=== PATIENT | female | born 1990 | race Caucasian/White ===

== ENCOUNTER 2018-04-15 18:11 | Emergency (ER) | payer MEDICAID ==
[2018-04-15] MEDS ORDERED: Ondansetron 4 MG/2 ML SDV IVPUSH ONE (18:56)
[2018-04-15] MEDS ORDERED: Sodium Chloride 0.9% 1,000 ML IV ONE (18:56)
[2018-04-15] MEDS ORDERED: Sodium Chloride 0.9% 10 ML Syringe FLUSH PRN (18:56)
[2018-04-15] MEDS ORDERED: diphenhydrAMINE 50 MG/ML SDV IVPUSH ONE (18:56)
[2018-04-15] MEDS ORDERED: Ketorolac 30 MG/ML SDV IVPUSH ONE (18:56)
--- NOTE | 2018-04-15 20:33 | EDM.PDOC ---
ED HPI GENERAL MEDICAL PROBLEM - General Chief Complaint: Headache Stated Complaint: HEADACHE CHILLS Time Seen by Provider: 04/15/18 18:40 Source of Information: Reports: Patient History Limitations: Reports: No Limitations - History of Present Illness INITIAL COMMENTS - FREE TEXT/NARRATIVE: This lady comes in complaining of a migraine for a few hours. This headache is similar to ones she has had in the past. She was driving and felt very very tired associated with this. Her headache is about a 6-7 out of 10. She takes medications for anxiety including one of the synthetic Cannabinoids and I believe and SSRI. She was getting these in [place] but is no longer on the medication since moving back to the [facility]. She does have a doctor in [place] she can follow-up with. - Related Data Allergies Allergy/AdvReac Type Severity Reaction Status Date / Time No Known Allergies Allergy Verified 04/15/18 18:32 Home Meds: Home Meds Nabilone [Cesamet] 04/15/18 [History] [id number] [Luvox] 04/15/18 [History] Past Medical History Psychiatric History: Reports: ADHD, Depression - Past Surgical History HEENT Surgical History: Reports: Eye Surgery Other Cardiovascular Surgeries/Procedures: wpw Social & Family History - Tobacco Use Smoking Status *Q: Never Smoker ED ROS GENERAL - Review of Systems Review Of Systems: ROS reveals no pertinent complaints other than HPI. - Physical Exam Exam: See Below Exam Limited By: No Limitations General Appearance: Alert, WD/WN, No Apparent Distress Eye Exam: Bilateral Eye: EOMI, Normal Fundi, Normal Inspection, PERRL Ears: Normal External Exam Throat/Mouth: Normal Oropharynx Head Exam: Atraumatic Neck: Normal Inspection Respiratory/Chest: No Respiratory Distress Cardiovascular: Regular Rate, Rhythm Neuro Exam (Abbreviated): Alert, Oriented, CN II-XII Intact, Normal Cognition, No Motor/Sensory Deficits Psychiatric: Normal Affect Course - Vital Signs Last Recorded V/S: Last Vital Signs Temp 35.1 C L 04/15/18 18:39 Pulse 60 04/15/18 18:39 Resp 16 04/15/18 18:39 BP 112/77 04/15/18 18:39 Pulse Ox 97 04/15/18 18:39 - Orders/Labs/Meds Orders: Active Orders 24 hr Category Date Time Status Sodium Chloride 0.9% [Saline Flush] Med 04/15/18 18:56 Active 10 ml FLUSH ASDIRECTED PRN Saline Lock Insert [OM.PC] Urgent Oth 04/15/18 18:56 Ordered Medication Orders Sodium Chloride (Saline Flush) 10 ml FLUSH ASDIRECTED PRN PRN Reason: Keep Vein Open Last Admin: 04/15/18 19:07 Dose: 10 ml Meds: Medications Generic Name Dose Route Start Last Admin Trade Name Freq PRN Reason Stop Dose Admin Sodium Chloride 10 ml 04/15/18 18:56 04/15/18 19:07 Saline Flush FLUSH 10 ml ASDIRECTED PRN Administration Keep Vein Open Discontinued Medications Generic Name Dose Route Start Last Admin Trade Name Freq PRN Reason Stop Dose Admin Diphenhydramine HCl 50 mg 04/15/18 18:56 04/15/18 19:17 Benadryl IVPUSH 04/15/18 18:57 50 mg ONETIME ONE Administration Sodium Chloride 1,000 mls @ 999 mls/hr 04/15/18 18:56 04/15/18 19:12 Normal Saline IV 04/15/18 19:56 999 mls/hr .BOLUS ONE Administration Ketorolac Tromethamine 30 mg 04/15/18 18:56 04/15/18 19:13 Toradol IVPUSH 04/15/18 18:57 30 mg ONETIME ONE Administration Ondansetron HCl 4 mg 04/15/18 18:56 04/15/18 19:15 Zofran IVPUSH 04/15/18 18:57 4 mg ONETIME ONE Administration - Re-Assessments/Exams Free Text/Narrative Re-Assessment/Exam: 04/15/18 20:35 she received 1 L IV normal saline Toradol 30 mg Benadryl 50 mg and Zofran 4 mg IV. After the fluid bolus she's feeling much better. Her parents have arrived to take her home Departure - Departure Time of Disposition: 20:31 Disposition: Home, Self-Care 01 Condition: Fair Clinical Impression: Migraine - Discharge Information Referrals: Bhakti Barlow NP [Primary Care Provider] - Forms: ED Department Discharge Additional Instructions: Go home and get plenty of sleep tonight. The IV Benadryl will cause some sedation for the next 8-12 hours so don't consider driving in that period of time. Follow-up with your Dr. as soon as you can regarding your medications. - My Orders Last 24 Hours: My Active Orders 04/15/18 18:56 Sodium Chloride 0.9% [Saline Flush] 10 ml FLUSH ASDIRECTED PRN Saline Lock Insert [OM.PC] Urgent - Assessment/Plan Last 24 Hours: My Active Orders 04/15/18 18:56 Sodium Chloride 0.9% [Saline Flush] 10 ml FLUSH ASDIRECTED PRN Saline Lock Insert [OM.PC] Urgent
== END 2018-04-15 20:40 | disposition home or self-care (01) ==
LOC: JP.ED 18:11
DX: G43.909 Migraine, unspecified, not intractable, without status migrainosus (principal)
CPT/HCPCS: 96361; 96374; 96375; 99284; J1200; J1885; J2405; J7030; 99283